=== PATIENT | male | born 2005 | race Caucasian/White ===

== ENCOUNTER 2023-07-16 07:45 | Emergency (ER) | payer OTHER, SELFPAY ==
[2023-07-16 07:56] VITALS: BP 139/87; PULSE 87; RESP 20; TEMP 37.1; O2SAT 99
--- NOTE | 2023-07-16 08:21 | ED.WOUNDLAC ---
HPI - Wound/Laceration General Chief Complaint: Wound/Laceration Stated Complaint: cut finger Time Seen by Provider: 07/16/23 07:47 Source: patient Mode of arrival: ambulatory Limitations: no limitations History of Present Illness HPI narrative: patient presents with a avulsion/flap laceration to the palmar surface of the tip of his left index finger he cut it on a piece of metal currently continues to bleed, holding pressure currently not on medication has no numbness or tingling to his finger or hand last tetanus little more than 5 years ago. Onset (ago): hour(s) Location: other Extremity Location: Left: hand ( avulsion and flap laceration tip of palmar surface of his left index finger) Place: work Patient tetanus UTD: No Context: accidental Related Data Home Medications Medication Instructions Recorded Confirmed No Home Medications 07/16/23 07/16/23 Allergies Allergy/AdvReac Type Severity Reaction Status Date / Time No Known Allergies Allergy Unverified 07/16/23 08:06 Review of Systems Review of Systems: All systems reviewed & are unremarkable except as noted in HPI and below PMFSH Past Medical History Medical History Patient denies medical problems Exam Const: General: healthy appearing Nutritional Appearance: well nourished Orientation/consciousness: patient oriented x3 Limitations: no limitations HENMT: Head: normal to inspection Resp: Effort & Inspection: normal respiratory effort Auscultation: clear to auscultation bilaterally Cardio: Rate: regular rate Rhythm: regular rhythm GI: GI Palp: Yes Soft to palpation Skin: Wounds: wounds noted Other: flap at avulsion laceration to the tip of the palmar surface of his left index finger Neuro: General: patient oriented x3 Psych: Mental Status: mental status grossly normal Affect: normal affect Course Course Emergency Course: the wound site is continues to bleed after irrigating and holding pressure, cautery streaks were used on the wound site which did slow the bleeding down to a trickle and Surgicel was placed. Patient not up-to-date with his tetanus and will administer tetanus shot. Vital Signs Vital signs: Vital Signs Temperature 37.1 C 07/16/23 07:56 Pulse Rate 87 07/16/23 07:56 Respiratory Rate 20 07/16/23 07:56 Blood Pressure 139/87 07/16/23 07:56 Pulse Oximetry 99 07/16/23 07:56 Oxygen Delivery Room Air 07/16/23 07:56 Temperature 37.1 C 07/16/23 07:56 Pulse Rate 87 07/16/23 07:56 Respiratory Rate 20 07/16/23 07:56 Blood Pressure 139/87 07/16/23 07:56 Pulse Oximetry 99 07/16/23 07:56 Oxygen Delivery Room Air 07/16/23 07:56 Procedures Laceration Laceration 1: Date: 07/16/23 Site: upper extremity Side (If applicable): left Description: flap Pre-repair: wound explored, irrigated and irrigated extensively ====== Skin Level ====== Skin layer closed with: other ( Silver nitrate sticks were used and Surgicel was applied) ====== Subcutaneous Layer ====== ====== Muscle Layer ====== ====== Tendon Layer ====== Critical Care Time Critical Care Time Critical Care Time: No Discharge Plan Discharge Clinical Impression: Avulsion of skin, Laceration Patient Disposition: Home, Self-Care Condition: Stable Instructions: Antibiotic Form, Skin Avulsion (ED), Laceration (ED) Additional Instructions: if symptoms continue or worsen can return to emergency department or follow-up with primary care physician. Prescriptions: No Action No Home Medications Follow-up/Referrals: Rosenda Thompson MD [Primary Care Provider] -
[2023-07-16] MEDS: TETANUS,DIPHTHERIA,AC PERTUSSIS ADULT 0.5 ML (ADACEL) IM (08:32)
[2023-07-16] MEDS: SILVER NITRATE (*SP) STICK 1 EACH TOPICAL (08:32)
--- NOTE | 2023-07-16 08:41 | PC.NURSE ---
On 07/16/23, the student, [ ], provided care and completed [employer] documentation on this patient. I have reviewed the student's documentation and agree with the findings.
[2023-07-16 08:55] VITALS: BP 141/92; PULSE 85; RESP 20; TEMP 36.9; O2SAT 98
== END 2023-07-16 08:58 | disposition home or self-care (01) ==
PROVIDERS: Emergency Provider Emergency Medicine; PCP Pediatrics
DX: S61.211A Laceration without foreign body of left index finger without damage to nail, initial encounter (principal); Z23 Encounter for immunization; W26.8XXA Contact with other sharp object(s), not elsewhere classified, initial encounter
CPT/HCPCS: 12001; 90471; 90715; 99283

== ENCOUNTER 2023-07-20 16:33 | Emergency (ER) | payer OTHER, SELFPAY ==
[2023-07-20 16:37] VITALS: BP 125/74; PULSE 82; RESP 20; TEMP 36.7; O2SAT 98
--- NOTE | 2023-07-20 17:21 | ED.GENADULT ---
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 No pain. no fever or swelling or redness or impairment to ROM. Related Data Allergies Allergy/AdvReac Type Severity Reaction Status Date / Time No Known Allergies Allergy Verified 07/20/23 17:10 Review of Systems Review of Systems: All systems reviewed & are unremarkable except as noted in HPI and below Constitutional: Constitutional: Denies chills and Denies fever(s) Cardiovascular: Cardiovascular: Denies chest pain Respiratory: Respiratory: Denies dyspnea Gastrointestinal: Gastrointestinal: Denies abdominal pain Exam Const: General: healthy appearing Nutritional Appearance: well nourished Eyes: Conjunctivae: conjunctivae normal Cardio: Rate: regular rate Skin: General skin exam: normal color, no jaundice and no pallor Other: left index finger scabbed over at site of cautery. A pinpoint area of blood-tinged discharge is static, not actively oozing. Extrem: General: no clubbing, cyanosis or edema Other: intact ROM Course Vital Signs Vital signs: Vital Signs Temperature 36.7 C 07/20/23 16:37 Pulse Rate 82 07/20/23 16:37 Respiratory Rate 07/20/23 16:37 Blood Pressure 125/74 07/20/23 16:37 Pulse Oximetry 98 07/20/23 16:37 Oxygen Delivery Room Air 07/20/23 16:37 Temperature 36.7 C 07/20/23 16:37 Pulse Rate 82 07/20/23 16:37 Respiratory Rate 07/20/23 16:37 Blood Pressure 125/74 07/20/23 16:37 Pulse Oximetry 98 07/20/23 16:37 Oxygen Delivery Room Air 07/20/23 16:37 Medical Decision Making [facility] Narrative Medical decision making narrative: well-healing finger; no acute infection or other pathology noted Vital Signs Vital Signs: Vital Signs Temperature 36.7 C 07/20/23 16:37 Pulse Rate 82 07/20/23 16:37 Respiratory Rate 07/20/23 16:37 Blood Pressure 125/74 07/20/23 16:37 Pulse Oximetry 98 07/20/23 16:37 Oxygen Delivery Room Air 07/20/23 16:37 Temperature 36.7 C 07/20/23 16:37 Pulse Rate 82 07/20/23 16:37 Respiratory Rate 20 07/20/23 16:37 Blood Pressure 125/74 07/20/23 16:37 Pulse Oximetry 98 07/20/23 16:37 Oxygen Delivery Room Air 07/20/23 16:37 Discharge Plan Discharge Clinical Impression: Laceration without foreign body of left index finger without damage to nail, subsequent encounter Patient Disposition: Home, Self-Care Condition: Improved Instructions: Antibiotic Form Additional Instructions: If swelling, redness, or pain develops, start the provided antibiotics. Prescriptions: New sulfamethoxazole-trimethoprim [Bactrim DS] 800-160 mg tablet 1 tablet PO BID 7 Days Qty: 14 0RF Follow-up/Referrals: UNKNOWN,DOCTOR [Primary Care Provider] - Time of Disposition: 17:26
[2023-07-20 17:38] VITALS: BP 118/72; PULSE 86; RESP 20; TEMP 36.7; O2SAT 98
== END 2023-07-20 17:39 | disposition home or self-care (01) ==
PROVIDERS: Emergency Provider Emergency Medicine
DX: S61.211D Laceration without foreign body of left index finger without damage to nail, subsequent encounter (principal); W26.8XXD Contact with other sharp object(s), not elsewhere classified, subsequent encounter
CPT/HCPCS: 99283